=== PATIENT | male | born 2005 | race Caucasian/White ===

== ENCOUNTER 2024-02-04 16:44 | Emergency (ER) | payer OTHER, SELFPAY ==
[2024-02-04 16:45] VITALS: BP 130/84
--- NOTE | 2024-02-04 17:10 | ED.GENMED ---
History of Present Illness
General
Chief Complaint: Abdominal Pain
Time Seen by Provider: 02/04/24 16:53
Travel History
Have you had any contact with someone who has COVID-19?: No
Do you have any symptoms of coronavirus? Fever > 100 degrees, chills, cough, shortness of breath, sore throat, loss of taste or smell, muscle aches, or headache?: No
History of Present Illness
History of Present Illness:
HPI: The patient presents due to right-sided abdominal pain associate with vomiting with inability to tolerate p.o. He has not had diarrhea. It started mildly yesterday morning and then got worse and worse. Since then it has plateaued. He went
to urgent care�they gave him Zofran and he feels somewhat improved currently however pain persists. Urgent care sent him here for further evaluation
EXAM:
GENERAL: Well appearing in no distress
HEENT: Moist oral mucosa
CARDIOVASCULAR: No murmurs, normal heart rate, regular rhythm, No chest wall tenderness
PULMONARY: No respiratory distress, breath sounds are clear and equal
ABDOMEN: Soft with no peritoneal signs, moderate tenderness between the right upper and right lower quadrants but more so on the right lower quadrant
NEUROLOGIC: Excellent strength all extremities, no coordination deficits
PSYCHIATRIC: Appropriate mental status, normal insight and judgement
EXTREMITIES: Nontender, no edema, moves all extremities equally
SKIN: No rash, no lesions
TIME OF INITIAL ENCOUNTER: 5:10 PM
NUMBER AND COMPLEXITY OF PROBLEMS ADDRESSED AT THE ENCOUNTER
� Chronic conditions affecting care: Has had concussion in the past, thyroid nodules
� Acute Exacerbation and/or Progression of Chronic Illness: This is an acute problem
� Differential Diagnosis includes: Appendicitis, biliary colic, cholecystitis, epiploic appendagitis, mesenteric adenitis, gastroenteritis unlikely given lack of diarrhea,
AMOUNT AND/OR COMPLEXITY OF DATA TO BE REVIEWED AND ANALYZED
� I performed an independent evaluation of and my interpretation is:
EKG:
CT: I personally reviewed CT imaging and agree with radiology interpretation that there is no acute abnormality
X-rays:
Laboratory Studies: White blood cell count is normal, chemistries also unremarkable including normal lipase, TSH is 0.46
Other:
� Review of other/old records: I reviewed records, the patient was treated for rabies exposure after dog bite to the arm in 2007
� Clinical information was obtained by an independent historian: I spoke to the girlfriend at bedside
� Prescriptions/Medications Considered but not given:
� Further testing considered but not performed:
RISK OF COMPLICATIONS AND/OR MORBIDITY OR MORTALITY OF PATIENT MANAGEMENT
� Social determinants of health affecting care: Lives at home
� Discussion with other providers:
� Escalation of care including admission/observation vs risk of discharge considered: The patient's white count and CAT scan are both unremarkable. He was given a dose of Toradol and does report improvement on reassessment at
7:30 PM. I recommend continued NSAIDs for the next few days. He also requested a work note for work for today which I have given. Unclear etiology of patient's symptoms. We also talked about the possibility of abdominal oblique muscle strain.
Phy Exam
Physical Exam
Physical Exam:
See HPI
Course
Orders/Labs/Results
Orders:
Orders
02/04/24 17:06
Complete Blood Count/With Diff Urgent
Comprehensive Metabolic Panel Urgent
Free T4 Urgent
Lipase Urgent
TSH Reflex To Free T4 Urgent
Comment: ADD ON
02/04/24 17:14
CT Abd/pelvis W Iv Cont Urgent
Comment:
Reason For Exam: R side abd pain, vomiting
0.9% Sodium Chloride 1000 ml [Nss] 1,000 ml IV BOLUS
02/04/24 17:32
Electrocardiogram (*1) Urgent
Reason for Study: QTc Monitoring
EKG- Treatment ONCE
02/04/24 17:42
Add On- LAB Urgent
Tests Added?: tsh w/ reflex fT4
02/04/24 18:53
Ketorolac [Toradol] 15 mg IV NOW STA
Abnormal Lab Results
02/04/24
17:06
TSH (Reflex) 0.46 L uIU/ml
(0.47-4.68)
02/04/24 17:06
02/04/24 17:06
Vital Signs
Initial and Last Documented VS:
Initial Vital Signs
Temp Pulse Resp BP Pulse Ox
98.2 F 64 18 130/84 100
02/04/24 16:45 02/04/24 16:45 02/04/24 16:45 02/04/24 16:45 02/04/24 16:45
Last Documented Vital Signs
Temp Pulse Resp BP Pulse Ox
98.2 F 58 16 122/86 95
02/04/24 16:45 02/04/24 17:45 02/04/24 17:45 02/04/24 17:23 02/04/24 17:45
*Critical Care Note
Total Time (30-74mins, 75-104mins- exclusive of procedures): Not Applicable
ED Attending Note
-
Portions of this chart may have been created with voice recognition software.� Occasional wrong word or��sound alike� substitutions may have occurred due to the inherent limitations of voice recognition software.
Discharge Plan
Departure
Patient Disposition: Home (Routine Discharge)
Date of Disposition: 02/04/24
Time of Disposition: 19:28
Patient with high blood pressure during this ER visit?: Yes
Discharge Problem:
Abdominal pain
Instructions: Abdominal Pain
Prescriptions:
No Action
ibuprofen 400 MG tablet
400 mg PO Q6H PRN (Reason: pain)
Referrals:
Peter Bennett MD [Family Provider] -
Stand Alone Forms: Return to Work
Activity Restrictions/Additional Instructions:
Please follow-up your primary care doctor. I recommend 3-4 rbda-xaa-pfiaabs ibuprofen (Motrin) every 8 hours with food for a few days. Return here if worse. Your white blood cell count is normal, other basic labs are normal, your thyroid testing,
TSH screening test was 0.46 (reference ranges 0.47-4.68). A free T4 level is currently pending. Follow-up with your primary care doctor. The CAT scan of your abdomen and pelvis showed no sign of appendicitis, no signs of gallstones, no enlarged
lymph nodes, no inflammation.
Interventions
Interventions:
*Risk Screen - Suicide Last Done: 02/04/24 16:45
*General Assessment Last Done: 02/04/24 16:45
*Neglect/Abuse Screening Last Done: 02/04/24 17:15
ED- Fall Risk Assessment Last Done: 02/04/24 17:15
*ED COVID-19 Vaccine History Last Done: 02/04/24 16:48
IX-Qsgkcu-Cyfsctaicw Assessment Last Done: 02/04/24 17:15
Discharge Date and Time
Print Language: WELSH
[2024-02-04 17:20] LABS: % Basophils 0.4 % (0-2); % Eosinophils 2.1 % (0-6); % Immature Granulocytes 0.3 % (0-0.5); % Lymphocytes 31.4 % (20.5-51.1); % Monocytes 7.4 % (1.7-9.3); % Neutrophils 58.4 % (42.2-75.2); Absolute Eosinophils 0.2 10^3/uL (0-0.7); Absolute Lymphocytes 2.5 10^3/uL (1.2-3.4); Absolute Monocytes 0.6 10^3/uL (0.1-0.6); Absolute Neutrophils 4.6 10^3/uL (1.4-6.5); Hematocrit 45.3 % (39.0-52.0); Mean Corp Hgb Conc. 35.3 g/dL (33.0-37.0); Mean Corpuscular Hgb 30.5 pg (27.0-31.0); Mean Corpuscular Volume 86.5 fL (80.0-94.0); Mean Platelet Volume 10.1 fL (7.4-10.4); Nucleated Red Blood Cells % 0 % (-); Platelet Count 169 10^3/uL (130-400); Red Blood Cell Count 5.24 10^6/uL (4.70-6.10); Red Cell Dist. Width 11.6 % (11.5-14.5); White Blood Cell Count 7.8 10^3/uL (4.8-10.8)
[2024-02-04 17:23] VITALS: BP 122/86
[2024-02-04] MEDS: NSS 1000 IV (17:24)
[2024-02-04 17:37] LABS: ALT (SGPT) 43 U/L (0-50); AST (SGOT) 30 U/L (17-59); Albumin 4.4 g/dl (3.5-5.0); Alkaline Phosphatase 72 U/L (38-126); Blood Urea Nitrogen 13 mg/dl (9-20); Calcium 9.7 mg/dl (8.4-10.2); Carbon Dioxide 26 mmol/L (22-30); Chloride 106 mmol/L (98-107); Glucose 84 mg/dl (70-99); Lipase 73 U/L (23-300); Potassium 4.1 mmol/L (3.5-5.1); Sodium 138 mmol/L (135-145); Total Bilirubin 0.4 mg/dl (0.2-1.3); Total Protein 6.8 g/dl (6.3-8.2); eGFR > 60.00
[2024-02-04 18:00] VITALS: BP 113/63
[2024-02-04] MEDS: TORADOL 15 MG IV (18:54)
[2024-02-04 19:11] LABS: TSH Reflex To Free T4 0.46 uIU/ml (0.47-4.68)
[2024-02-04 19:43] LABS: Free T4 0.89 ng/dl (0.78-2.19)
== END 2024-02-04 19:42 | disposition home or self-care (01) ==
LOC: EMR 16:44
PROVIDERS: EMERGENCY PHYSICIAN Emergency Medicine; FAMILY PHYSICIAN Internal Medicine
DX: R10.9 Unspecified abdominal pain (principal)
CPT/HCPCS: 99284; 96374; 96361; 74177; 80053; 83690; 84439; 84443; 85025; Q9967

== ENCOUNTER 2024-06-18 06:45 | Emergency (ER) | payer OTHER, SELFPAY ==
[2024-06-18 06:47] VITALS: BP 148/96
[2024-06-18 07:08] VITALS: BMI 28.1
[2024-06-18 07:18] VITALS: BP 146/96
[2024-06-18] MEDS: NSS 1000 IV (07:28)
[2024-06-18] MEDS: DECADRON 10 MG IV (07:28)
[2024-06-18] MEDS: REGLAN 10 MG IV (07:28)
[2024-06-18] MEDS: BENADRYL 50 MG IV (07:29)
[2024-06-18] MEDS: TORADOL 30 MG IV (07:29)
--- NOTE | 2024-06-18 07:35 | ED.GENMED ---
History of Present Illness
General
Chief Complaint: Headache
Source: patient
Exam Limitations: none
Time Seen by Provider: 06/18/24 07:01
Nursing documentation reviewed up to this point in time: agreed with
History of Present Illness
History of Present Illness:
19-year-old male past medical history of multiple concussions, migraines presenting to the emergency department today with concerns of posterior headache described as achy over the past 3 days or so has been taking Motrin Tylenol at home without
relief. Has had ongoing nausea no vomiting has been somewhat lightheaded. Denies any numbness weakness chest pain shortness of breath. Denies any fevers or recent illness
Review of Systems
Review of Systems
Allergies reviewed?: Yes
All Other Systems: ROS reviewed and negative except as documented in HPI and ROS
Phy Exam
Physical Exam
Physical Exam:
GENERAL: Alert , in no apparent distress
EYE: pupils equal and reactive
NECK: Supple, no significant adenopathy.
ENT: o/p clr, mmm.
CARDIAC: Regular rate and rhythm .
LUNGS: Clear breath sounds bilaterally, no acute respiratory distress, no wheezes/rales/rhonchi
ABDOMEN: Soft, without focal tenderness, no r/g, no cvat
NEUROLOGICAL: Alert and oriented, no focal neuro deficits 5 out of 5 upper and lower extremity strength normal sensation with palpating bilaterally normal finger-nose and heel cochran no pronator drift
SKIN: Warm and dry, skin intact.
MUSCULOSKELETAL: No edema, well perfused.
PSYCH: Normal and appropriate interaction.
Course
Orders/Labs/Results
Orders:
Orders
06/18/24 07:18
0.9% Sodium Chloride 1000 ml [Nss] 1,000 ml IV BOLUS
Dexamethasone Sod Phosphate [Decadron] 10 mg IV NOW STA
Diphenhydramine [Benadryl] 50 mg IV NOW STA
Ketorolac [Toradol] 30 mg IV NOW STA
Metoclopramide [Reglan] 10 mg IV NOW STA
06/18/24 07:24
CBC/With Diff [Complete Blood Count/With Diff] Urgent
CMP [Comprehensive Metabolic Panel] Urgent
Abnormal Lab Results
06/18/24
07:24
Absolute Lymphs (auto) 3.6 H 10^3/uL
(1.2-3.4)
Absolute Monos (auto) 0.7 H 10^3/uL
(0.1-0.6)
ALT 52 H U/L
(0-50)
06/18/24 07:24
06/18/24 07:24
Vital Signs
Initial and Last Documented VS:
Initial Vital Signs
Temp Pulse Resp BP Pulse Ox
98.7 F 82 22 148/96 98
06/18/24 06:47 06/18/24 06:47 06/18/24 06:47 06/18/24 06:47 06/18/24 06:47
Last Documented Vital Signs
Temp Pulse Resp BP Pulse Ox
98.7 F 82 22 146/96 95
06/18/24 06:47 06/18/24 06:47 06/18/24 06:47 06/18/24 07:18 06/18/24 07:20
MDM/Problems Addressed
MDM/Problems Addressed:
19-year-old male presenting to the emergency department today with concerns of posterior headache that feels similar to previous migraines but has been lasting longer than usual. Has seen a neurologist in the past that told him he has a migraine
syndrome was prescribed Imitrex but he has not been taking this. He also had a concern that the pupils were unequal 2 days ago. On assessment here there is no significant abnormality. Blood pressure slightly elevated otherwise vital signs are
normal. Labs unremarkable. Normal neurologic evaluation no neck stiffness no signs of meningismus no fever. Not abrupt in onset not maximal in onset. Has been gradual over the past few days. Does seem most consistent with patient's migraine
syndrome. Plan for symptomatic treatment.
Patient reassessed 1 hour after treatment and was fast asleep. He claims that symptoms were improved after he was awakened. Vital signs normal throughout ER stay life-threatening etiology unlikely at this time no signs of infectious process not
consistent clinically with subarachnoid normal neurologic evaluation. I feel the patient is safe for close outpatient follow-up with neurology and was given strict return precautions for any progression of symptoms.
*Critical Care Note
Total Time (30-74mins, 75-104mins- exclusive of procedures): Not Applicable
ED Attending Note
-
Portions of this chart may have been created with voice recognition software.� Occasional wrong word or��sound alike� substitutions may have occurred due to the inherent limitations of voice recognition software.
Discharge Plan
Departure
Patient Disposition: Home (Routine Discharge)
Date of Disposition: 06/18/24
Time of Disposition: 09:05
Patient with high blood pressure during this ER visit?: No
Condition: Good
Covid-19: Not Applicable
Discharge Problem:
Headache
Instructions: Headache, Adult (DC)
Prescriptions:
No Action
ibuprofen 400 MG tablet
400 mg PO Q6H PRN (Reason: pain)
Referrals:
Kelly Rebolledo MD [Active] - Follow up in 5-7 days
UNKNOWN - PT DOES,NOT KNOW [Family Provider] -
Activity Restrictions/Additional Instructions:
You came to the emergency department today with concerns of headache. Here you had improvement with the medications provided. Please follow closely with your neurologist within the next week for reassessment. Return to the emergency department
for any progression or worsening of symptoms.
Interventions
Interventions:
*Risk Screen - Suicide Last Done: 06/18/24 06:47
*General Assessment Last Done: 06/18/24 07:14
*Neglect/Abuse Screening Last Done: 06/18/24 06:47
ED- Fall Risk Assessment Last Done: 06/18/24 07:11
*ED COVID-19 Vaccine History Last Done: 06/18/24 07:08
ED- Neurological Assessment Last Done: 06/18/24 07:08
Discharge Date and Time
Print Language: ITALIAN
[2024-06-18 07:38] LABS: Hematocrit 44.7 % (39.0-52.0); Hemoglobin 15.8 g/dL (13.0-18.0); Mean Corp Hgb Conc. 35.3 g/dL (33.0-37.0); Mean Corpuscular Hgb 30.2 pg (27.0-31.0); Mean Corpuscular Volume 85.5 fL (80.0-94.0); Mean Platelet Volume 9.8 fL (7.4-10.4); Platelet Count 201 10^3/uL (130-400); Red Blood Cell Count 5.23 10^6/uL (4.70-6.10); Red Cell Dist. Width 11.9 % (11.5-14.5); White Blood Cell Count 9.9 10^3/uL (4.8-10.8)
[2024-06-18 07:41] LABS: ALT (SGPT) 52 U/L (0-50); AST (SGOT) 33 U/L (17-59); Albumin 4.6 g/dl (3.5-5.0); Alkaline Phosphatase 76 U/L (38-126); Blood Urea Nitrogen 10 mg/dl (9-20); Calcium 9.7 mg/dl (8.4-10.2); Carbon Dioxide 27 mmol/L (22-30); Chloride 103 mmol/L (98-107); Estimated Creatinine Clearance > 125 ml/min; Glucose 90 mg/dl (70-99); Potassium 4.3 mmol/L (3.5-5.1); Sodium 142 mmol/L (135-145); Total Bilirubin 0.6 mg/dl (0.2-1.3); eGFR > 60.00
[2024-06-18 07:58] LABS: % Basophils 0.6 % (0-2); % Eosinophils 1.5 % (0-6); % Immature Granulocytes 0.2 % (0-0.5); % Lymphocytes 36.6 % (20.5-51.1); % Monocytes 6.8 % (1.7-9.3); % Neutrophils 54.3 % (42.2-75.2); Absolute Basophils 0.1 10^3/uL (0-0.2); Absolute Eosinophils 0.2 10^3/uL (0-0.7); Absolute Lymphocytes 3.6 10^3/uL (1.2-3.4); Absolute Monocytes 0.7 10^3/uL (0.1-0.6); Absolute Neutrophils 5.4 10^3/uL (1.4-6.5); Nucleated Red Blood Cells % 0 % (-)
[2024-06-18 08:00] VITALS: BP 136/74
[2024-06-18 09:00] VITALS: BP 131/88
[2024-06-18 10:00] VITALS: BP 124/68
--- NOTE | 2024-06-18 10:15 | EDRN ---
Reviewed discharge instructions with patient. Verbalized understanding.
[2024-06-18 10:17] VITALS: BP 124/68
== END 2024-06-18 10:20 | disposition home or self-care (01) ==
LOC: EMR 06:45
PROVIDERS: Physician Assistant; EMERGENCY PHYSICIAN Emergency Medicine
DX: R51.9 Headache, unspecified (principal)
CPT/HCPCS: 99282; 96374; 96375; 96361; 80053; 85025

== ENCOUNTER 2024-10-30 20:12 | Emergency (ER) | payer OTHER, SELFPAY ==
[2024-10-30 20:15] VITALS: BP 115/75
[2024-10-30 20:43] LABS: % Basophils 0.4 % (0-2); % Eosinophils 0.1 % (0-6); % Immature Granulocytes 0.4 % (0-0.5); % Lymphocytes 9.5 % (20.5-51.1); % Monocytes 11.8 % (1.7-9.3); % Neutrophils 77.8 % (42.2-75.2); Absolute Lymphocytes 0.7 10^3/uL (1.2-3.4); Absolute Monocytes 0.8 10^3/uL (0.1-0.6); Absolute Neutrophils 5.4 10^3/uL (1.4-6.5); Hematocrit 44.9 % (39.0-52.0); Hemoglobin 16.1 g/dL (13.0-18.0); Mean Corp Hgb Conc. 35.9 g/dL (33.0-37.0); Mean Corpuscular Hgb 30.9 pg (27.0-31.0); Mean Corpuscular Volume 86.2 fL (80.0-94.0); Mean Platelet Volume 10.2 fL (7.4-10.4); Nucleated Red Blood Cells % 0 % (-); Platelet Count 158 10^3/uL (130-400); Red Blood Cell Count 5.21 10^6/uL (4.70-6.10); Red Cell Dist. Width 11.9 % (11.5-14.5)
[2024-10-30 20:58] LABS: COVID-19 Antigen Negative (Negative)
--- NOTE | 2024-10-30 21:07 | ED.GENMED ---
History of Present Illness
General
Chief Complaint: Abdominal Symptoms
Time Seen by Provider: 10/30/24 20:45
History of Present Illness
History of Present Illness:
19-year-old male presents to the emergency department for evaluation of fever, body aches, chills, headache, lightheadedness, and vomiting for the past 24 hours. Denies any chest pain or shortness of breath. He is a tobacco/nicotine user but has
no chronic lung disease. No other underlying health issues. Last took DayQuil approximately 4 hours ago
Review of Systems
Review of Systems
Allergies reviewed?: Yes
All Other Systems: ROS reviewed and negative except as documented in HPI and ROS
Phy Exam
Physical Exam
Physical Exam:
GEN: Well appearing, NAD, WDWN
HEENT: Oral mucosa moist, no scleral icterus, TMs clear bilaterally with no erythema, oropharynx clear with no erythema or exudate
Cardiac: Regular rate and rhythm, no murmur
Lung: No respiratory distress, no tachypnea, lungs clear to auscultation bilaterally
MSK: No gross deformity or injuries
Skin: Good color, no pallor or jaundice, no rashes
Neuro: AO x3, moves all extremities freely
Psych: Calm, cooperative
Course
Orders/Labs/Results
Orders:
Orders
10/30/24 20:17
Electrocardiogram (*1) Urgent
Reason for Study: Syncope
10/30/24 20:18
EKG- Treatment ONCE
10/30/24 20:21
COVID-19 Antigen Urgent
Source: Nasal Swab
Influenza A+B Rapid Molecular Urgent
YARELI Source: Nasal Swab
Specimen Description:
10/30/24 20:37
Complete Blood Count/With Diff Urgent
Comprehensive Metabolic Panel Urgent
10/30/24 21:09
Ibuprofen [Motrin] 600 mg PO NOW STA
Ondansetron Orally Disint [Zofran Odt (Orally Disintegrating)] 4 mg PO NOW STA
Abnormal Lab Results
10/30/24
20:37
Absolute Lymphs (auto) 0.7 L 10^3/uL
(1.2-3.4)
Absolute Monos (auto) 0.8 H 10^3/uL
(0.1-0.6)
Neutrophils % 77.8 H %
(42.2-75.2)
Lymphocytes % 9.5 L %
(20.5-51.1)
Monocytes % 11.8 H %
(1.7-9.3)
Sodium 133 L mmol/L
(135-145)
Glucose 100 H mg/dl
(70-99)
10/30/24 20:37
10/30/24 20:37
Vital Signs
Initial and Last Documented VS:
Initial Vital Signs
Temp Pulse Resp BP Pulse Ox
99.3 F 98 18 115/75 100
10/30/24 20:15 10/30/24 20:15 10/30/24 20:15 10/30/24 20:15 10/30/24 20:15
Last Documented Vital Signs
Temp Pulse Resp BP Pulse Ox
99.3 F 98 18 115/75 100
10/30/24 20:15 10/30/24 20:15 10/30/24 20:15 10/30/24 20:15 10/30/24 20:15
MDM/Problems Addressed
MDM/Problems Addressed:
Patient is clinically well-appearing, vital signs are normal, labs are reassuring. Flu a positive. Discussed supportive care and return parameters
*Critical Care Note
Total Time (30-74mins, 75-104mins- exclusive of procedures): Not Applicable
ED Attending Note
-
Portions of this chart may have been created with voice recognition software.� Occasional wrong word or��sound alike� substitutions may have occurred due to the inherent limitations of voice recognition software.
Discharge Plan
Departure
Patient Disposition: Home (Routine Discharge)
Date of Disposition: 10/30/24
Time of Disposition: 21:24
Patient with high blood pressure during this ER visit?: No
Discharge Problem:
Influenza
Instructions: Flu in adults - Discharge instructions
Prescriptions:
No Action
ibuprofen 400 MG tablet
400 mg PO Q6H PRN (Reason: pain)
Referrals:
Peter Bennett MD [Primary Care Provider] -
Interventions
Interventions:
*Risk Screen - Suicide Last Done: 10/30/24 20:20
*General Assessment Last Done: 10/30/24 20:15
*Neglect/Abuse Screening Last Done: 10/30/24 20:20
*ED COVID-19 Vaccine History Last Done: 10/30/24 20:15
*Nursing Disposition Last Done: 10/30/24 21:44
UD-Lsfifa-Dddnxtbqtw Assessment Last Done: 10/30/24 21:32
Discharge Date and Time
Discharge Date/Time: 10/30/24 21:45
Print Language: LITHUANIAN
[2024-10-30 21:24] LABS: ALT (SGPT) 35 U/L (0-50); AST (SGOT) 29 U/L (17-59); Albumin 4.7 g/dl (3.5-5.0); Alkaline Phosphatase 48 U/L (38-126); Blood Urea Nitrogen 12 mg/dl (9-20); Calcium 9.5 mg/dl (8.4-10.2); Carbon Dioxide 24 mmol/L (22-30); Chloride 101 mmol/L (98-107); Glucose 100 mg/dl (70-99); Potassium 4.1 mmol/L (3.5-5.1); Sodium 133 mmol/L (135-145); Total Protein 7.5 g/dl (6.3-8.2); eGFR > 60.00
[2024-10-30] MEDS: ZOFRAN ODT (ORALLY DISINTEGRATING) 4 MG PO (21:29)
[2024-10-30] MEDS: MOTRIN 600 MG PO (21:29)
== END 2024-10-30 21:45 | disposition home or self-care (01) ==
LOC: EMR 20:12
PROVIDERS: Student in an Organized Health Care Education/Training Program; EMERGENCY PHYSICIAN Emergency Medicine; PRIMARYCARE PHYSICIAN Internal Medicine
DX: J10.1 Influenza due to other identified influenza virus with other respiratory manifestations (principal)
CPT/HCPCS: 99284; 80053; 85025; 87502; 87811; 93005

== ENCOUNTER 2025-06-05 20:53 | Emergency (ER) | payer OTHER, SELFPAY ==
[2025-06-05 20:55] VITALS: BP 130/82
[2025-06-05 21:00] VITALS: BP 130/82
[2025-06-05 22:24] VITALS: BP 145/70
[2025-06-05 23:00] VITALS: BP 132/73
[2025-06-06] VITALS: BP 132/75
--- NOTE | 2025-06-06 01:08 | ED.GENMED ---
History of Present Illness
General
Chief Complaint: Head Injury
Source: patient
Exam Limitations: none
Time Seen by Provider: 06/06/25 00:54
Nursing documentation reviewed up to this point in time: agreed with
History of Present Illness
History of Present Illness:
20-year-old male with past medical history as noted presents to the ER for evaluation after head trauma. Patient reports that last week he hit his head on a fume aguirre at work. He says that he did not lose consciousness but since then he has been
having mild headache, mildly dizzy. He says that he has had some mild sensitivity to light. Feeling slightly off balance. Decided to come to the ER to be evaluated. No vomiting. No weakness or numbness in the extremities. No other acute
issues. Not on blood thinners.
Review of Systems
Review of Systems
All Other Systems: ROS reviewed and negative except as documented in HPI and ROS
Constitutional: Denies fever
ABD/GI: Denies vomiting
Neurological: Reports dizzy and headache; Denies weakness or numbness
Phy Exam
Physical Exam
Physical Exam:
General: Awake, alert, oriented x3; no acute distress
Head: Normocephalic, atraumatic�no cephalhematoma or signs of skull fracture
Eyes: Conjunctiva normal, EOMI, pupils equal and reactive to light bilaterally
Throat: Airway intact, handling secretions
Neck: Trachea midline, full range of motion without pain
Lungs: Breathing comfortably no distress
Heart: Regular rate
Neuro: Cranial nerves intact 2 through 12, no limb ataxia in the upper or lower extremities, normal Romberg, normal heel toe walk, motor and sensory intact 5/5 upper and lower extremities both proximally and distally
Extremities: No edema in extremities, warm and well-perfused
Scores
Heart Failure Risk
Heart Failure Risk Score: Not Applicable
Heart Score for Chest Pain Patients
STEMI patient?: Not applicable
Withdrawal Assessment of Alcohol
Withdrawal Assessment Completed?: Not applicable
Course
Vital Signs
Initial and Last Documented VS:
Initial Vital Signs
Temp Pulse Resp BP Pulse Ox
36.9 C 97 18 130/82 96
06/05/25 20:55 06/05/25 20:55 06/05/25 20:55 06/05/25 20:55 06/05/25 20:55
Last Documented Vital Signs
Temp Pulse Resp BP Pulse Ox
36.9 C 72 17 132/75 98
06/05/25 21:00 06/06/25 01:00 06/06/25 01:00 06/06/25 00:00 06/06/25 00:30
MDM/Problems Addressed
Differential Diagnosis Includes:
Concussion, considered the possibility of brain bleed
MDM/Problems Addressed:
20-year-old male presents for evaluation of headache and dizziness, ongoing since a minor head trauma last week. Vitals and exam as above. Overall clinical picture consistent with concussion. No neurologic deficits or other red flag symptoms to
suggest brain bleed. Using [place] head CT rules guideline no indication for emergent CT head at this point in time. Stable for discharge, follow-up with PCP. Spoke about rest, sleep, avoiding screen time, etc. All questions answered.
*Pulse Oximetry
SaO2: 98
Oxygen Mode of Delivery: Room air
Patient hypoxic: no (98%)
*Critical Care Note
Total Time (30-74mins, 75-104mins- exclusive of procedures): Not Applicable
Data Reviewed
Source: patient and significant other
Further Testing Considered But Not Given:
Considered CT head
ED Attending Note
-
Portions of this chart may have been created with voice recognition software.� Occasional wrong word or��sound alike� substitutions may have occurred due to the inherent limitations of voice recognition software.
Discharge Plan
Departure
Patient Disposition: Home (Routine Discharge)
Date of Disposition: 06/06/25
Time of Disposition: 01:07
Patient with high blood pressure during this ER visit?: No
Discharge Problem:
Concussion
Instructions: Concussion, Adult (DC)
Prescriptions:
No Action
ibuprofen 400 MG tablet
400 mg PO Q6H PRN (Reason: pain)
Referrals:
Peter Bennett MD [Family Provider, Internal Medicine] - Follow up in 1 week
Stand Alone Forms: Return to Work
Activity Restrictions/Additional Instructions:
Thank you for visiting the Emergency Department at [facility].
1. Please schedule a follow up appointment as directed. Call first thing tomorrow morning to make an appointment.
2. If indicated, please take your medications as instructed and indicated on discharge paperwork.
3. If any of your symptoms do not improve, or persist, or become more severe within 6-12 hours, please return to the emergency department for further care.
4. Please return to the emergency department if you develop a headache, neck pain/stiffness, fever greater than 100.4F, chest pain, shortness of breath, persistent nausea, vomiting, slurred speech, difficulty walking, numbness/tingling, weakness,
signs of infection or any other symptoms that are worrisome to you.
Please call [phone] if you have any questions.
Interventions
Interventions:
*Risk Screen - Suicide Last Done: 06/05/25 20:55
*General Assessment Last Done: 06/05/25 22:27
*Neglect/Abuse Screening Last Done: 06/05/25 20:55
*ED- Fall Risk Assessment Last Done: 06/05/25 22:27
*ED COVID-19 Vaccine History Last Done: 06/05/25 22:27
ED- Neurological Assessment Last Done: 06/05/25 22:00
ED-Skin Assessment Last Done: 06/05/25 22:00
Discharge Date and Time
Print Language: [place]
== END 2025-06-06 01:14 | disposition home or self-care (01) ==
LOC: EMR 20:53
PROVIDERS: EMERGENCY PHYSICIAN Emergency Medicine; FAMILY PHYSICIAN Internal Medicine
DX: S06.0X0A Concussion without loss of consciousness, initial encounter (principal); W22.09XA Striking against other stationary object, initial encounter; Y99.0 Civilian activity done for income or pay
CPT/HCPCS: 99282

== ENCOUNTER 2025-06-08 04:55 | Emergency (ER) | payer OTHER, SELFPAY ==
[2025-06-08 04:57] VITALS: BP 146/108
[2025-06-08 08:00] VITALS: BP 108/68
--- NOTE | 2025-06-08 09:11 | ED.GENMED ---
History of Present Illness
<Leia Lamb PA-C - Last Filed: 06/08/25 15:08>
General
Chief Complaint: Head Injury
Source: patient
Exam Limitations: none
Time Seen by Provider: 06/08/25 08:20
Nursing documentation reviewed up to this point in time: agreed with
History of Present Illness
History of Present Illness:
see MDM
Past History
<Leia Lamb PA-C - Last Filed: 06/08/25 15:08>
Past History
ED Past Medical History: Other (migraines)
Social History
Tobacco: Non-smoker
Employment: Employed
Review of Systems
<Leia Lamb PA-C - Last Filed: 06/08/25 15:08>
Review of Systems
Allergies reviewed?: Yes
All Other Systems: Not applicable
Phy Exam
<Leia Lamb PA-C - Last Filed: 06/08/25 15:08>
Physical Exam
Physical Exam:
see MDM
Course
<Leia Lamb PA-C - Last Filed: 06/08/25 15:08>
Orders/Labs/Results
Orders:
Orders
06/08/25 09:07
CT Head W/o Iv Contrast Urgent
Comment:
Reason For Exam: HEAD STRIKE, HEADACHE
Acetaminophen [Tylenol] 1,000 mg PO NOW STA
Vital Signs
Initial and Last Documented VS:
Initial Vital Signs
Temp Pulse Resp BP Pulse Ox
36.6 C 82 22 146/108 100
06/08/25 04:57 06/08/25 04:57 06/08/25 04:57 06/08/25 04:57 06/08/25 04:57
Last Documented Vital Signs
Temp Pulse Resp BP Pulse Ox
36.6 C 82 22 108/68 100
06/08/25 04:57 06/08/25 04:57 06/08/25 04:57 06/08/25 08:00 06/08/25 09:12
<Umer Allen DO - Last Filed: 06/08/25 11:04>
Orders/Labs/Results
Orders:
Orders
06/08/25 09:07
CT Head W/o Iv Contrast Urgent
Comment:
Reason For Exam: HEAD STRIKE, HEADACHE
Acetaminophen [Tylenol] 1,000 mg PO NOW STA
Vital Signs
Initial and Last Documented VS:
Initial Vital Signs
Temp Pulse Resp BP Pulse Ox
36.6 C 82 22 146/108 100
06/08/25 04:57 06/08/25 04:57 06/08/25 04:57 06/08/25 04:57 06/08/25 04:57
Last Documented Vital Signs
Temp Pulse Resp BP Pulse Ox
36.6 C 82 22 108/68 100
06/08/25 04:57 06/08/25 04:57 06/08/25 04:57 06/08/25 08:00 06/08/25 09:12
<Leia Lamb PA-C - Last Filed: 06/08/25 15:08>
MDM/Problems Addressed
Differential Diagnosis Includes:
see MDM
MDM/Problems Addressed:
Note:
CHIEF COMPLAINT(S)
Headache and dizziness following head trauma.
HISTORY OF PRESENT ILLNESS
The patient is a 20-year-old male who presented with a headache and dizziness after hitting his head. Approximately eight days ago, the patient accidentally struck his FOREhead on the smoke aguirre of an oven, resulting in off-balance feelings and
subsequent engagement of the back of his head with a door frame. The patient did not lose consciousness at that time but experienced increased dizziness and pain.
he was seen here on 06/06 and was told he probably had concussion; he was not imaged at the time.
has continued to have headache, lightheadedness
Last night, around midnight, the patient reported worsening symptoms after another minor head trauma. He attempted to sleep but managed only intermittent short periods of rest for three to four hours. The patient was unable to alleviate the headache
and dizziness effectively with [id number] pain relief�taking Tylenol without sufficient relief.
He also reports photophobia, neck tightness, and persistent headache since the initial injury, describing his symptoms as reminiscent of prior migraines
PAST MEDICAL AND SURIGICAL HISTORY
He has a history of migraines.
REVIEW OF SYSTEMS
- Neurological: Headache, dizziness, photophobia.
- Musculoskeletal: Neck tightness and headache following trauma.
PHYSICAL EXAM
GENERAL: Alert , in no apparent distress
HEAD: NCAT, no hematomas
EYE: pupils equal and reactive, no nystagmus, minimal photophobia
NECK: Supple,full rom, nontender
ENT: o/p clr, mmm.
CARDIAC: Regular rate and rhythm . no edema
LUNGS: Clear breath sounds bilaterally, no acute respiratory distress, no wheezes/rales/rhonchi
ABDOMEN: Soft, without focal tenderness, no r/g, no cvat
NEUROLOGICAL: Alert and orientedx 4, cn intact, no facial asymmetry, 5/5 strength in UE/LE, sensation intact, romberg neg, ambulates without assistance, neg pronator drift
SKIN: Warm and dry, skin intact.
MUSCULOSKELETAL: No edema, well perfused.
PSYCH: Normal and appropriate interaction.
- Nursing notes reviewed and vital signs reviewed.
PLAN
- Head computed tomography (CT) scan to assess for potential internal injury due to increased symptoms following head trauma.
- Administration of Tylenol for symptom relief, as the patient expressed a preference against intravenous therapy and specific medications that previously caused adverse reactions.
DIFFERENTIAL DIAGNOSIS
The Differential Diagnosis includes, in no particular order and is not limited to:
1. Concussion
2. Migraine
3. Tension headache
4. Cervical strain
5. Vestibular dysfunction
6. Subdural hematoma
7. Epidural hematoma
8. Traumatic brain injury
9. Post-concussion syndrome
10. Meningeal irritation\\\\
20 Y/O M
ho previous concussions
10 days ago frontal head strike, no LOC
but sequelae of concussion and was seen here 2 days ago, no imaging
then early this morning had lightheadedness and fell hitting back of his head against door frame; did not fall to the ground
no LOC
no vomiting
has global headache
says he has h/o migraines
neuro intact
no head trauma on exam
offered migraine meds but pt has had adverse reaction to reglan before
requests tylenol
CT head shows possible articfact vs. chornic subdural vs. hygroma
pt seen by ed attending
agree that this is unlikeyl acute, but chronic and most likely artifactual
pt informed of CT finding and to /F/U for MRI
return precautions
brain rest 48 hours
<Leia Lmab PA-C - Last Filed: 06/08/25 15:08>
*Pulse Oximetry
SaO2: 100
Oxygen Mode of Delivery: Room air
Patient hypoxic: no (100)
*Critical Care Note
Total Time (30-74mins, 75-104mins- exclusive of procedures): Not Applicable
ED Attending Note
<Leia Lamb PA-C - Last Filed: 06/08/25 15:08>
-
Portions of this chart may have been created with voice recognition software.� Occasional wrong word or��sound alike� substitutions may have occurred due to the inherent limitations of voice recognition software.
<Umer Allen DO - Last Filed: 06/08/25 11:04>
ED Attending Note
Patient seen and examined by attending physician: Yes
I performed the substantive portion of visit, reviewed & personally made and approve the management plan that is documented in note by myself or JARAD.: Yes
ED Attending Note:
20-year-old male presents to the emergency room after hitting his head. Patient had a head injury September 05 when he struck his head off a few blood work. He did not lose consciousness but was having a headache. He was seen here in the emergency
room diagnosed with a concussion. Patient struck his head again last night making his symptoms worse. He continues to have a headache and has some dizziness. No focal weakness numbness or tingling.
General: Awake, Alert, Oriented X3. No acute distress.
Vitals: unremarkable
Head: Atraumatic
Eyes: Pupils equal, EOMI
Neck: Trachea midline
Neuro: Nonfocal
Skin: Warm, dry, no rash
Extremities: pulses equal b/l, no edema
CT of the head performed. No acute bleeding or injury noted. There is a questionable area of beam-hardening or low-attenuation collection noted by radiology. This does not correlate with an acute injury. Recommend outpatient follow-up and
outpatient MRI to further evaluate.
Discharge Plan
Departure
Patient Disposition: Home (Routine Discharge)
Date of Disposition: 06/08/25
Time of Disposition: 10:59
Patient with high blood pressure during this ER visit?: No
Condition: Fair
Covid-19: Not Applicable
Discharge Problem:
Post concussive syndrome
Instructions: Concussion, Adult (DC)
Prescriptions:
No Action
ibuprofen 400 MG tablet
400 mg PO Q6H PRN (Reason: pain)
Referrals:
Navya Horton MD [Non-Admitting Privileges] - Follow up in 5-7 days
Referral Note: NEUROLOGIST
Peter Bennett MD [Family Provider, Internal Medicine] - Follow up in 2-3 days
Stand Alone Forms: Return to Work
Activity Restrictions/Additional Instructions:
YOUR CAT SCAN SHOWED AN IRREGULARITY THAT LOOKS CHRONIC AND NOT ACUTE BUT IS PROBABLY JUST ARTIFACT AND NOT CLINICLALY RELEVANT
FOLLOW UP WITH YOUR DOCTOR FOR FURTHER EVALUATION
YOU MAY NEED OUTPATIENT MRI OF YOUR BRAIN
FOR NOW, BRAIN REST ANOTHER 48 HOURS
TYLENOL EVERY 6 HOURS FOR PAIN
LIGHT DIET
MAY WANT TO SEE A NEUROLOGIST OR CONCUSSION SPECIALIST WELL
RETURN FOR ANY CONCERNS: ACUTE WORST HEADACHE OF LIFE, VOMITING, CONFUSION ETC
Interventions
Interventions:
*Risk Screen - Suicide Last Done: 06/08/25 04:57
*General Assessment Last Done: 06/08/25 11:08
*Neglect/Abuse Screening Last Done: 06/08/25 04:57
*ED- Fall Risk Assessment Last Done: 06/08/25 11:08
*ED COVID-19 Vaccine History Last Done: 06/08/25 11:08
*Nursing Disposition Last Done: 06/08/25 11:08
ED- Neurological Assessment Last Done: 06/08/25 11:07
ED-Skin Assessment Last Done: 06/08/25 11:07
Discharge Date and Time
Discharge Date/Time: 06/08/25 11:09
Print Language: FIJIAN
[2025-06-08] MEDS: TYLENOL 1000 MG PO (09:13)
== END 2025-06-08 11:09 | disposition home or self-care (01) ==
LOC: EMR 04:55
PROVIDERS: EMERGENCY PHYSICIAN Emergency Medicine; FAMILY PHYSICIAN Internal Medicine
DX: S09.90XA Unspecified injury of head, initial encounter (principal); F07.81 Postconcussional syndrome; G44.309 Post-traumatic headache, unspecified, not intractable; W22.09XA Striking against other stationary object, initial encounter
CPT/HCPCS: 99284; 70450